=== PATIENT | male | born 1990 | race Caucasian/White ===

== ENCOUNTER 2018-11-12 19:40 | Emergency (ER) | payer BC ==
[~2018-11-12] VITALS: Ht 177.8 cm; Wt 94.8 kg
[2018-11-12 20:31] VITALS: BP 123/55; Ht 177.8 cm; Wt 94.8 kg
== END 2018-11-12 22:12 | disposition home or self-care (01) ==
LOC: ED 19:40
DX: S82.301A Unspecified fracture of lower end of right tibia, initial encounter for closed fracture (principal); Z90.89 Acquired absence of other organs; W10.9XXA Fall (on) (from) unspecified stairs and steps, initial encounter; Y93.89 Activity, other specified; Y92.89 Other specified places as the place of occurrence of the external cause; Y99.8 Other external cause status
CPT/HCPCS: Q0092